=== PATIENT | male | born 1990 | race Two or more races ===

== ENCOUNTER 2023-03-30 16:00 | Emergency (ER) | payer SELFPAY ==
[~2023-03-30] VITALS: Ht 185.4 cm; Wt 95.5 kg
[2023-03-30 16:10] VITALS: BP 108/64; PULSE 84; RESP 18; TEMP 98.3
[2023-03-30] MEDS ORDERED: TraMADol HCL 50 MG TABLET PO ONE (17:00)
[2023-03-30] MEDS ORDERED: TRAM-559 PO (17:00)
== END 2023-03-30 17:49 | disposition home or self-care (01) ==
LOC: EMS 16:02
DX: S92.911A Unspecified fracture of right toe(s), initial encounter for closed fracture (principal); X58.XXXA Exposure to other specified factors, initial encounter; Y93.89 Activity, other specified; Y92.89 Other specified places as the place of occurrence of the external cause; Y99.8 Other external cause status
CPT/HCPCS: 99283